=== PATIENT | female | born 1940 | race Caucasian/White ===

== ENCOUNTER 2022-01-05 14:29 | Outpatient (CLI) | payer MEDICARE ==
[~2022-01-05 14:29] MED LIST: ACET-1917 PO; ALPR-624 PO; ASPI-1265 PO; BILB500C PO; CHOL2000 PO; FLAX SEED OIL PO; GABA-330 PO; GARL200T PO; GLU850T PO; LEVO25TA50 PO; MELATONIN PO; MULT1CAP34 PO; SIMV-341 PO; VALERIAN PO; VITA-104 PO; VITA1CAP11 PO
== END 2022-01-05 23:59 | disposition home or self-care (01) ==
LOC: VAS 14:29
PROVIDERS: ATTEND Family Medicine
DX: M79.652 Pain in left thigh (principal)
CPT/HCPCS: 93971